=== PATIENT | male | born 1990 | race African-American/Black ===

== ENCOUNTER 2018-04-19 00:53 | Emergency (ER) | payer SELFPAY ==
[~2018-04-19] VITALS: Ht 182.9 cm; Wt 123.9 kg
[2018-04-19] MEDS ORDERED: PREDNISONE20 MG PO (01:48)
[2018-04-19] MEDS ORDERED: ZITHROMAX500 MG PO (01:48)
[2018-04-19 02:11] VITALS: BP 119/75
== END 2018-04-19 02:11 | disposition home or self-care (01) ==
LOC: EME 00:53
DX: J02.9 Acute pharyngitis, unspecified (principal); F17.200 Nicotine dependence, unspecified, uncomplicated
CPT/HCPCS: 87651 90; J7512